=== PATIENT | male | born 1940 ===

== ENCOUNTER 2018-10-20 10:37 | Day surgery (SDC) | payer MEDICARE ==
[~2018-10-20 10:37] MED LIST: Acetaminophen TAB* 325 MG PO PRN; Buffered Lidocaine 1% SYRIN* 1 ML/SYRINGE INTRADERM ONE; Cyclopentolate 1% OPTH.SOL* 2 ML BTL ONE; Ketorolac 0.5% OPHTH (NF) 0.5 % 5 ML BTL ONE; Lidocaine 2% EPI 1:200000 MPF*10-20 ML VIAL ONE; Neomycin/Polymy/Dex OPTH.SUSP* MAXITROL 0.1% 5 ML ONE; Phenylephrine OPHTH SOL 2.5%* 2 ML ONE; Povidone Iodine 5% OPTH* 30 ML BTL ONE; Proparacaine 0.5% OPHTH.SOL* 15 ML BTL ONE; acetaZOLAMIDE TAB* 250 MG ONE
[2018-10-20] MEDS ORDERED: Midazolam* 1 MG/ML 2 ML VIAL (2 MG) ONE (12:36)
[2018-10-20 13:56] VITALS: BP 152/81
--- NOTE | 2018-10-20 14:18 | OP ---
OPERATIVE NOTE: DATE OF OPERATION: 10/20/18 - [facility] DATE OF : 36 SURGEON: Camilo Steve M.D. PREOPERATIVE DIAGNOSIS: Cataract, right eye. POSTOPERATIVE DIAGNOSIS: Cataract, right eye. OPERATIVE PROCEDURE: Extracapsular cataract extraction with intraocular lens implant right eye. PROCEDURE: The patient was brought to the operating room after being given 1/2 % Alcaine with epinephrine drops in the preoperative area. The eye was prepped and draped in the usual sterile fashion. Sterile drape and eyelid speculum were placed. Again, topical 1/2% Alcaine with epinephrine was given. A paracentesis incision was made at the 9 o'clock position with the No.75 blade. Clear cornea incision 2.2 x 2.2-mm was created at the 12 o'clock position starting at the anterior limbus using the 2.2-mm keratome. The anterior chamber was irrigated with 0.4 mL of 1% non-preservative intracameral lidocaine and filled with DisCoVisc. A capsulorrhexis was completed using the cystotome and the Utrata forceps. Hydrodissection was performed with balanced salt solution. The lens nucleus was removed with the Phacoemulsification handpiece without incident. Cortex was removed with the irrigation-aspiration handpiece. The capsular bag was re-inflated using DisCoVisc and an SN60WF 20.5 implant was inserted with the shooter. A Malyugin ring was used prior to capsulorrhexis because of a small pupil, removed after insertion of the lens. Indication for complex cataract surgery is pupil abnormalities requiring pupil dilation device. The irrigation-aspiration handpiece was used to remove all residual DisCoVisc. The eye was refilled with balanced salt solution and the wound checked and found to be watertight. Topical Maxitrol drops were given. [id number]/[facility] #: [id number] [facility]
== END 2018-10-20 13:48 | disposition home or self-care (01) ==
LOC: OREAST 10:37
PROVIDERS: ATTEND Specialist
DX: H25.811 Combined forms of age-related cataract, right eye (principal); H01.021 Squamous blepharitis right upper eyelid; H01.022 Squamous blepharitis right lower eyelid; H01.024 Squamous blepharitis left upper eyelid; H01.025 Squamous blepharitis left lower eyelid; J45.909 Unspecified asthma, uncomplicated; Z72.0 Tobacco use
CPT/HCPCS: A9270-GY; J2250; V2632

== ENCOUNTER 2018-10-27 09:28 | Day surgery (SDC) | payer MEDICARE ==
[~2018-10-27 09:28] MED LIST changes: -Cyclopentolate 1% OPTH.SOL* 2 ML BTL ONE; -Ketorolac 0.5% OPHTH (NF) 0.5 % 5 ML BTL ONE; -Lidocaine 2% EPI 1:200000 MPF*10-20 ML VIAL ONE; -Neomycin/Polymy/Dex OPTH.SUSP* MAXITROL 0.1% 5 ML ONE; -Phenylephrine OPHTH SOL 2.5%* 2 ML ONE; -Povidone Iodine 5% OPTH* 30 ML BTL ONE; -Proparacaine 0.5% OPHTH.SOL* 15 ML BTL ONE; -acetaZOLAMIDE TAB* 250 MG ONE
[2018-10-27] MEDS ORDERED: Phenylephrine OPHTH SOL 2.5%* 2 ML ONE (11:18)
[2018-10-27] MEDS ORDERED: Povidone Iodine 5% OPTH* 30 ML BTL ONE (11:18)
[2018-10-27] MEDS ORDERED: Ketorolac 0.5% OPHTH (NF) 0.5 % 5 ML BTL ONE (11:18)
[2018-10-27] MEDS ORDERED: Lidocaine 2% EPI 1:200000 MPF*10-20 ML VIAL ONE (11:18)
[2018-10-27] MEDS ORDERED: Proparacaine 0.5% OPHTH.SOL* 15 ML BTL ONE (11:18)
[2018-10-27] MEDS ORDERED: acetaZOLAMIDE TAB* 250 MG ONE (11:18)
[2018-10-27] MEDS ORDERED: Neomycin/Polymy/Dex OPTH.SUSP* MAXITROL 0.1% 5 ML ONE (11:18)
[2018-10-27] MEDS ORDERED: Cyclopentolate 1% OPTH.SOL* 2 ML BTL ONE (11:18)
[2018-10-27] MEDS ORDERED: Lidocaine 1%** 5 ML VIAL ONE (11:18)
[2018-10-27] MEDS ORDERED: Midazolam* 1 MG/ML 2 ML VIAL (2 MG) ONE (11:57)
[2018-10-27 12:56] VITALS: BP 170/75
--- NOTE | 2018-10-27 13:40 | OP ---
OPERATIVE NOTE: DATE OF OPERATION: 10/27/18 DATE OF : 36 SURGEON: Camilo Steve M.D. PREOPERATIVE DIAGNOSIS: Cataract, left eye. POSTOPERATIVE DIAGNOSIS: Cataract, left eye. OPERATIVE PROCEDURE: Extracapsular cataract extraction with intraocular lens implant left eye. PROCEDURE: The patient was brought to the operating room after being given 1/2% Alcaine with epineph rine drops in the preoperative area. The eye was prepped and draped in the usual sterile fashion. S terile drape and eyelid speculum were placed. Again, topical 1/2% Alcaine with epinephrine was given . A paracentesis incision was made at the 3 o'clock position with the No.75 blade. Clear cornea inc ision 2.2 x 2.2-mm was created at the 6 o'clock position starting at the anterior limbus using the 2. 2-mm keratome. The anterior chamber was irrigated with 0.4 mL of 1% non-preservative intracameral li docaine and filled with DisCoVisc. A capsulorrhexis was completed using the cystotome and the Utrata forceps. Hydrodissection was performed with balanced salt solution. The lens nucleus was removed wi th the Phacoemulsification handpiece without incident. Cortex was removed with the irrigation-aspira tion handpiece. The capsular bag was re-inflated using DisCoVisc and an SN60WF 20 implant was insert ed with the shooter. The pupil was very small, so Malyugin ring was used to dilate the pupil prior t o capsulorrhexis, removed after insertion of the lens. The irrigation-aspiration handpiece was used to remove all residual DisCoVisc. The eye was refilled with balanced salt solution and the wound rose marie cked and found to be watertight. Topical Maxitrol drops were given. INDICATION FOR COMPLEX CATARACT SURGERY: Pupil abnormalities requiring pupil dilation device. [id number]/[facility] #: [id number]
== END 2018-10-27 13:06 | disposition home or self-care (01) ==
LOC: OREAST 09:28
PROVIDERS: ATTEND Specialist
DX: H25.812 Combined forms of age-related cataract, left eye (principal); H21.562 Pupillary abnormality, left eye; H01.024 Squamous blepharitis left upper eyelid; H01.025 Squamous blepharitis left lower eyelid; H01.021 Squamous blepharitis right upper eyelid; H01.022 Squamous blepharitis right lower eyelid; Z87.891 Personal history of nicotine dependence; J45.909 Unspecified asthma, uncomplicated
CPT/HCPCS: A9270-GY; J2250; V2632